=== PATIENT | male | born 1985 | race Caucasian/White ===

== ENCOUNTER 2019-10-17 18:32 | Emergency (ER) | payer OTHER ==
[~2019-10-17] VITALS: Ht 180.3 cm; Wt 76.0 kg
[2019-10-17 20:17] LABS: BASO # 0.1 10^3/uL (0.0-0.2); BASO % 0.9 % (0.0-1.0); EOS # 0.1 10^3/uL (0.0-0.5); EOS % 1.2 % (0.0-3.0); HEMATOCRIT 43.4 % (42.0-52.0); HEMOGLOBIN 15.1 g/dl (13.5-17.5); LYMPH # 1.9 10^3/uL (1.5-5.0); MEAN CORPUSCULAR HEMOGLOBIN 30.4 pg (27.0-33.0); MEAN CORPUSCULAR HGB CONC 34.8 g/dl (32.0-36.5); MEAN CORPUSCULAR VOLUME 87.3 fl (80.0-96.0); MONO # 0.7 10^3/uL (0.0-0.8); MONO % 8.6 % (0.0-5.0); NEUTROPHILS # 5.8 10^3/uL (1.5-8.5); NEUTROPHILS % 67.1 % (36.0-66.0); PLATELET COUNT, AUTOMATED 250 10^3/uL (150-450); RED BLOOD COUNT 4.97 10^6/uL (4.30-6.10); WHITE BLOOD COUNT 8.6 10^3/uL (4.0-10.0)
[2019-10-17 20:47] LABS: ALBUMIN 4.3 GM/DL (3.2-5.2); ALT/SGPT 19 U/L (12-78); BILIRUBIN,DIRECT < 0.1 MG/DL (0.0-0.2); BILIRUBIN,TOTAL 0.4 MG/DL (0.2-1.0); CK-MB VALUE MASS < 1.0 NG/ML (<3.6); CPK CREATINE PHOSPHOKINASE 158 U/L (39-308); LIPASE 77 U/L (73-393); MB/CK RELATIVE INDEX 0.63 (< OR =4); TOTAL PROTEIN 7.6 GM/DL (6.4-8.2); TROPONIN I < 0.02 NG/ML (< 0.10)
[2019-10-17 20:49] LABS: AMPHETAMINES LEVEL URINE NEGATIVE (NEGATIVE); BARBITURATES URINE NEGATIVE (NEGATIVE); BENZODIAZEPINES URINE NEGATIVE (NEGATIVE); CANNABINOIDS URINE POSITIVE (NEGATIVE); COCAINE METABOLITE URINE NEGATIVE (NEGATIVE); METHADONE URINE NEGATIVE (NEGATIVE); OPIATES URINE NEGATIVE (NEGATIVE); PHENCYCLIDINE URINE NEGATIVE (NEGATIVE)
[2019-10-17 21:16] VITALS: BP 128/75
--- NOTE | 2019-10-24 19:04 | REP ---
CHEST X-RAY: TWO VIEWS HISTORY: Chest pain. FINDINGS: The lungs are well-inflated and clear. The pleural angles are sharp. No significant bony abnormality is seen. Pulmonary vasculature is not increased. IMPRESSION: Negative chest x-ray. MTDD
--- NOTE | 2019-11-06 15:41 | ECGEPIP ---
[facility] - ED Test Date: 2019-10-17 Pat Name: RAOUL MALDONADO Department: Room: - Gender: Male Director Of Curriculum And Instruction: tb : 1985 Requested By: DAVID LAFLEUR Order Number: [id number] Reading MD: Mouan Reese Measurements Intervals [place] Rate: 67 P: 46 LA: 118 QRS: 66 QRSD: 104 T: 71 QT: 380 QTc: 402 Interpretive Statements SINUS RHYTHM WITH SHORT LA INTERVAL BORDERLINE ECG PROB EARLY REPOL-CLINCIAL CORRELATION SEE SCANNED DOWNTIME REPORT
== END 2019-10-17 21:18 | disposition home or self-care (01) ==
LOC: M ED 18:32
DX: R07.9 Chest pain, unspecified (principal); R06.00 Dyspnea, unspecified; F17.210 Nicotine dependence, cigarettes, uncomplicated; F12.20 Cannabis dependence, uncomplicated